=== PATIENT | female | born 1975 | race Caucasian/White ===

== ENCOUNTER → 2021-12-22 | Outpatient (CLI) | payer BC | LOC: KOH-I 14:35 | DX: M25.561 Pain in right knee (principal) | CPT/HCPCS: 73562 ==

== ENCOUNTER → 2022-01-04 | Outpatient (CLI) | payer BC | LOC: KOH-I 15:28 | DX: M25.561 Pain in right knee (principal); M25.861 Other specified joint disorders, right knee | CPT/HCPCS: 73721 ==